=== PATIENT | male | born 1945 | race Caucasian/White ===

== ENCOUNTER → 2017-09-27 08:00 | Outpatient (CLI) | payer MEDICARE, SELFPAY ==
--- NOTE | 2017-09-27 14:46 | PFT ---
INTRODUCTION: The patient is a 72-year-old male currently under the care of Dr. Blankenship that presents for pulmonary function studies secondary to a diagnosis of COPD. Respiratory therapy reports good patient effort reports no other concerns. Bronchodilators were used during testing. INTERPRETATION: Forced expiration spirometry demonstrates the presence of a moderate large airways obstructive ventilatory defect. There was no significant response to aerosolized bronchodilators, based upon strict ATS criteria. Spirograms of good quality and do not plateau indicating slow emptying of the lungs. The respiratory flow volume loop reveals decreased expiratory flow rates at all lung volumes consistent with airways obstruction. Body plethysmography was performed and reveals lung volumes to be within normal limits. Diffusing capacity by single breath CO is within normal limits at 74% of predicted. When compared to previous pulmonary function studies dated November 2015, there has been an 8% reduction in FEV1. IMPRESSION: These pulmonary function studies demonstrate the presence of an irreversible moderate large airways obstructive ventilatory defect with normal lung volumes and preserved diffusing capacity. There has been an 8% reduction in the patient's FEV1 since PFTs were last completed in November 2015.
--- NOTE | 2017-09-27 14:50 | PFT_ITS ---
INTRODUCTION: The patient is a 72-year-old male currently under the care of Dr. Blankenship that presents for pulmonary function studies secondary to a diagnosis of COPD. Respiratory therapy reports good patient effort reports no other concerns. Bronchodilators were used during testing. INTERPRETATION: Forced expiration spirometry demonstrates the presence of a moderate large airways obstructive ventilatory defect. There was no significant response to aerosolized bronchodilators, based upon strict ATS criteria. Spirograms of good quality and do not plateau indicating slow emptying of the lungs. The respiratory flow volume loop reveals decreased expiratory flow rates at all lung volumes consistent with airways obstruction. Body plethysmography was performed and reveals lung volumes to be within normal limits. Diffusing capacity by single breath CO is within normal limits at 74% of predicted. When compared to previous pulmonary function studies dated November 2015, there has been an 8% reduction in FEV1. IMPRESSION: These pulmonary function studies demonstrate the presence of an irreversible moderate large airways obstructive ventilatory defect with normal lung volumes and preserved diffusing capacity. There has been an 8% reduction in the patient 's FEV1 since PFTs were last completed in November 2015.
== END ==
PROVIDERS: Family Provider Internal Medicine; PCP Internal Medicine; Visit Provider Internal Medicine Critical Care Medicine
DX: J44.9 Chronic obstructive pulmonary disease, unspecified (principal)
CPT/HCPCS: 94060; 94726; 94729

== ENCOUNTER 2017-10-11 11:29 | Emergency (ER) | payer MEDICARE, SELFPAY ==
[2017-10-11 11:30] VITALS: BP 147/95; PULSE 68; RESP 18; TEMP 36.6; O2SAT 96; BMI 25.1
--- NOTE | 2017-10-11 11:51 | EKG12_ITS ---
Test Reason : Blood Pressure : / mmHG Vent. Rate : 063 BPM Atrial Rate : 063 BPM P-R Int : 142 ms QRS Dur : 096 ms QT Int : 402 ms P-R-T Axes : 081 024 071 degrees QTc Int : 411 ms Normal sinus rhythm Normal ECG Confirmed by JAXSON MELTON, ELVIN ([id number]), art editor NAMAN MONDRAGON ([id number]) on 10/13/2017 3:19:40 PM Referred By: SALBADOR Confirmed By:ELVIN PURI MD
--- NOTE | 2017-10-11 11:51 | CT_ITS ---
STUDY: CT BRAIN WITHOUT CONTRAST REASON FOR EXAM: Male, 72 years old. History of fall. Prostate cancer. Dizziness. RADIATION DOSAGE (If Supplied By Facility): CTDIvol = ( 44.99 ) mGy, DLP = ( 779.24 ) mGycm TECHNIQUE: Transaxial CT imaging of the brain was performed without administration of intravenous contrast material. Individualized dose optimization techniques were used for this CT. COMPARISON: Comparison is made with prior examination dated July 04, 2012. FINDINGS: Normal soft tissue structures. Normal calvarium. Normal size ventricles and extra-axial spaces for the patient's age. Normal white matter tracts of the cerebral hemispheres. Normal basal ganglia and thalami. Normal brainstem. Normal cerebellum. There is no intracranial hemorrhage. There are no findings of an acute ischemic infarction. Normal visualized paranasal sinuses. CT/Brain/Head without Contrast IMPRESSION: Normal unenhanced CT scan of the brain. Electronically Signed: Pop Tinajero MD at 12:54 EDT Tel [phone], Service support ,
[2017-10-11 12:25] LABS: Absolute Lymphocyte Count 0.64 X10^3/ul (0.83-4.51); Absolute Neutrophil Count 4.2 X10^3/uL (2.0-7.7); Basophil# 0.01 X10^3/uL; Basophil% 0.2 % (0-1); Eosinophil# 0.03 X10^3/uL; Eosinophils% 0.6 % (0-5); Hematocrit 43.3 % (40-54); Hemoglobin 14.6 g/dl (13.0-16.5); Lymphocyte # 0.64 X10^3/ul (4.0); Lymphocyte % 12.2 % (19-41); Mean Corp Hgb Conc 33.7 g/gl (32-36); Mean Corpuscular Hgb 30.8 pg (27.0-32.0); Mean Corpuscular Volume 91.4 fL (80-94); Monocyte# 0.36 X10^3/uL; Monocyte% 6.8 % (0-10); Neutrophil # 4.21 X10^3/uL (2.7-7.7); Platelet Count 211 K/mm3 (150-450); RBC Distribution Width CV 13.7 % (11.6-14.6); RBC Distribution Width SD 44.9 fl (35.1-43.9); Red Blood Count 4.74 M/mm3 (4.6-6.2); White Blood Count 5.3 K/mm3 (4.4-11.0)
[2017-10-11 12:28] LABS: POSITIVE COUNT NO; POSITIVE DIFFERENTIAL NO; POSITIVE MORPHOLOGY NO
[2017-10-11 12:34] LABS: Anion Gap 8 (5-15); BUN 11 mg/dL (7-18); BUN/Creat Ratio 13.3 RATIO (10-20); Chloride 103 mmol/L (98-107); Creatinine, Serum 0.83 mg/dL (0.70-1.30); EST Glomerular Filtration Rate 97 mL/min (>60); Est Glom Filt Rate - Afr Amer 118 mL/min (>60); Estimated Creatinine Clearance 83.07 ml/min; Glucose 92 mg/dL (74-106); Potassium 4.2 mmol/L (3.5-5.1); Sodium Level 138 mmol/L (136-145)
[2017-10-11 13:10] VITALS: BP 146/87; PULSE 65; RESP 14; O2SAT 98
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
[2017-10-11 13:15] VITALS: BP 149/83; PULSE 66; RESP 15; O2SAT 98
[2017-10-11] MEDS: Diphth,Pertuss(Acell),Tet Vac 0.5 ML Vial IM (13:33)
== END 2017-10-11 13:55 | disposition home or self-care (01) ==
PROVIDERS: Emergency Provider Emergency Medicine; Family Provider Internal Medicine; PCP Internal Medicine
DX: R55 Syncope and collapse (principal); S01.81XA Laceration without foreign body of other part of head, initial encounter; W18.30XA Fall on same level, unspecified, initial encounter; Y93.89 Activity, other specified; Y92.9 Unspecified place or not applicable; Y99.9 Unspecified external cause status; Z23 Encounter for immunization; J44.9 Chronic obstructive pulmonary disease, unspecified; I10 Essential (primary) hypertension; M19.90 Unspecified osteoarthritis, unspecified site; F32.9 Major depressive disorder, single episode, unspecified; F17.220 Nicotine dependence, chewing tobacco, uncomplicated; Z79.82 Long term (current) use of aspirin; Z79.899 Other long term (current) drug therapy; Z85.46 Personal history of malignant neoplasm of prostate
CPT/HCPCS: 70450; 80048; 85025; 90471; 90715; 93005; 99285; J7040; A4216

== ENCOUNTER → 2017-10-18 11:31 | Outpatient (CLI) | payer MEDICARE, SELFPAY | PROVIDERS: Family Provider Internal Medicine; PCP Internal Medicine | DX: R55 Syncope and collapse (principal) | CPT/HCPCS: 93225; 93226 ==

== ENCOUNTER 2021-11-09 09:56 | Emergency (ER) | payer MEDICARE, SELFPAY ==
[2021-11-09 09:59] VITALS: BP 113/58; PULSE 76; RESP 17; TEMP 37; O2SAT 98; BMI 22.4
--- NOTE | 2021-11-09 10:12 | EX.ED.DYSGE1 ---
HPI History of Present Illness Chief Complaint: Fever Detail of Chief Complaint: Fever x4 days Informant: patient Narrative Narrative: Patient presents to the emergency department complaint of a fever that started 4 days ago. Patient's had temperatures up to 101. Patient describes fatigue and some decreased appetite as well as decreased taste and smell. Patient has had the COVID vaccine and booster. He denies sick contacts. He also complains of some loose stools and body aches. Patient was seen at urgent care 2 days ago and had negative Covid test as well as negative flu. Patient had a negative urine as well as a negative chest x-ray at that time. Patient does have history of prostate cancer and receives daily oral chemotherapy. Patient referred to the ER by his oncologist. Prior similar symptoms: No PFSH PFSH Medical History (Updated 11/09/21 @ 11:[address] Elaine Barkley, DO) Anxiety and depression Arthritis Dyspnea Emphysema lung Hilar adenopathy History of prostate cancer Insomnia Pneumonia, bacterial Rosacea Stage 2 moderate COPD by GOLD classification Home Medications aspirin 325 mg PO DAILY@0800 10/06/15 [History Last Taken Unknown] multivitamin with folic acid 1 tab PO DAILY 10/06/15 [History Last Taken Unknown] bisacodyl 5 mg tablet 5 mg PO ONCE 01/14/18 [History Last Taken Unknown] cholecalciferol (vitamin D3) 125 mcg (5,000 unit) capsule 5,000 unit PO QDAY 01/14/18 [History Last Taken Unknown] clonazepam 1 mg tablet 0.5 mg PO QHS tab 01/14/18 [History Last Taken Unknown] leuprolide (3 month) [Lupron Depot (3 month)] IM [id number] 01/14/18 [History Last Taken Unknown] omega-3 fatty acids 500 mg capsule 500 mg PO QDAY 01/14/18 [History Last Taken Unknown] albuterol sulfate 90 mcg/actuation aerosol inhaler 2 puff INHALATION TID #1 inhaler 02/11/18 [Rx Last Taken Unknown] levofloxacin 750 mg PO DAILY 5 Days #5 tab 11/09/21 [Rx Last Taken Unknown] Allergy/AdvReac Type Severity Reaction Status Date / Time [id number] Reductase AdvReac Other Verified 11/09/21 09:58 Inhibitor [Irjesbl-Pag-Xhh Reductase Inhibitor] Family History Mother Heart disease Diabetes Father Heart disease Surgical History History of prostate surgery Social History (Updated 08/14/20 @ 13:[address] Rodolfo Blankenship MD) Smoking Status: Former smoker Tobacco: How many years used: 20 second hand exposure: No alcohol intake: never substance use type: does not use caffeine: Yes what type of physical activity do you participate in: walking frequency: daily ROS ROS ED Constitutional Constitutional ED: Reports systems reviewed and no addt'l complaints, except as documented, chills and fever(s); Denies body ache(s) or change in weight Eyes Eyes: Denies acute decrease in peripheral vision, change in vision, double vision or loss of vision ENT ENT ED: Reports none; Denies ear pain, lip swelling, loss taste/smell, neck pain, otalgia or sore throat Cardiovascular Cardiovascular: Reports none; Denies abdominal pain, chest pain with activity, leg edema, lightheadedness, palpitations, rapid heart rate or syncope Respiratory/Chest Respiratory/Chest: Reports none; Denies change in mental status, dry cough, dyspnea, hemoptysis, shortness of breath at rest or shortness of breath with exertion Gastrointestinal Gastrointestinal: Reports none, diarrhea and nausea; Denies abdominal pain, change in stool character, hematemesis, hematochezia, melena, rectal bleeding or vomiting Genitourinary Genitourinary ED: Reports none; Denies abdominal discomfort, anuria, dysuria, genital pain or polyuria Musculoskeletal Musculoskeletal: Reports none and myalgias; Denies arthralgias, back pain, difficulty walking, extremity pain or muscle weakness Integumentary Reports none; Denies abscess or rash Neurologic Neurologic: Reports none and weakness; Denies abnormal gait, confusion, focal weakness, frequent falls, headache(s), loss of vision, numbness, paresthesias, radicular pain or vertigo Psychiatric Psychiatric: Reports systems reviewed and no addt'l complaints, except as documented and none; Denies behavioral changes, confusion, difficulty concentrating, hallucinations, suicidal ideation, tactile hallucinations or visual hallucinations Endocrine Endocrinology: Denies none, cold intolerance, excessive sweating, fatigue or heat intolerance Hematologic/Lymphatic Hematologic/Lymphatic: Reports none; Denies anemia, easy bleeding or easy bruising Allergic/Immunologic Allergic/Immunologic ED: Denies as per HPI, none, lip swelling, mouth swelling, throat swelling, tongue swelling or hives EXAM Physical Exam Const Vital Signs: 11/09/21 09:59 11/09/21 10:21 Temperature 98.6 F 98.6 F Temperature Source Temporal Temporal Pulse Rate 76 76 Respiratory Rate 17 17 Respiratory Effort Normal Non-Labored Respiratory Pattern Normal Blood Pressure 113/58 L 113/58 L Blood Pressure Mean 76 76 Pulse Ox 98 98 Oxygen Delivery Method Room Air Room Air Positive well nourished and well developed General Appearance ED: well developed and NAD HEENT Reports TM's clear and moist mucous membranes normocephalic and atraumatic; Negative for trauma or tenderness Tympanic Membrane ED: Yes TM's clear Eyes PERRL and EOMs intact bilaterally General Eye ED: Negative for pale conjunctiva or scleral icterus Neck no lymphadenopathy, supple and no JVD General: Negative for tenderness Chest Wall inspection of chest normal and palpation of chest normal Chest: Negative for tenderness Resp normal respiratory effort and clear to auscultation bilaterally Effort and Inspection: Negative for respiratory distress or pain with movement Auscultation: Negative for rhonchi, wheezes or diminished lung sounds Cardio regular rate, regular rhythm, S1 normal heart sound, S2 normal heart sound and no murmurs Peripheral Pulses: pulses 2+ throughout GI normal to inspection, nondistended, normoactive bowel sounds, soft to palpation, non-tender, non-distended and no masses Back/Spine no CVA tenderness and no thoracic nor lumbar tenderness Extremity normal to inspection General Extremety ED: Negative for edema General Extremity: Negative for edema Neuro oriented x3, CN's II-XII intact bilaterally, no sensory deficits noted and gait normal Sensorium / Orientation: awake, alert, oriented to person, oriented to place and oriented to time Motor Exam: strength 5/5 throughout and strength abnormal Psych mental status grossly normal Skin no rashes or lesions noted and no wounds MDM MDM MDM Narrative Medical decision making narrative: IV line established on arrival. Patient had blood cultures ordered. Lab work showed a low white blood cell count with bandemia. COVID-19 testing was negative. Lactate was normal. Urinalysis was unremarkable. Chest x-ray showed nothing acute. I did discuss case with patient's oncologist Dr. Ross who asked that I start patient on Levaquin and given that he is vital signs are stable and he looks well and there is no source of infection felt that it was reasonable that he could go home with instructions to return if symptoms should worsen. Patient has had his oral chemotherapy discontinued recently. He is on prednisone. Patient in agreement with plan moving forward as we will await his blood culture results. I suspect he may have a viral infection. Lab Data Attestation: I reviewed the patient's lab results. Labs: Laboratory Results - last 24 hr 11/09/21 11/09/21 11/09/21 10:16 10:16 10:16 WBC 2.7 L RBC 3.44 L Hgb 10.4 L Hct 30.6 L MCV 89.0 MCH 30.2 MCHC 34.0 RDW Std Deviation 50.0 H RDW Coeff of Raul 15.4 H Plt Count 183 MPV 9.0 Neut % (Auto) Not Reportable Absolute Neuts (auto) 2.2 Absolute Lymphs (auto) 0.22 L Total Counted 100 Neutrophils % (Manual) 63 Band Neutrophils % 17 H Lymphocytes % (Manual) 8 L Monocytes % (Manual) 4 Eosinophils % (Manual) 4 Metamyelocytes % 1 Myelocytes % 3 H Diff Path Review May foll Platelet Estimate ADEQUATE RBC Morphology NORM C+C Sodium 132 L Potassium 3.4 L Chloride 99 Carbon Dioxide 26.0 Anion Gap 7 BUN 12 Creatinine 0.68 L Estim Creat Clear Calc 63.02 Est GFR (MDRD) Af Amer 146 Est GFR (MDRD) Non-Af 120 BUN/Creatinine Ratio 17.6 Glucose 143 H Lactic Acid 1.4 Calcium 8.3 L Total Bilirubin 0.40 AST 34 ALT 41 Alkaline Phosphatase 125 H Total Protein 6.1 L Albumin 2.7 L Globulin 3.4 Albumin/Globulin Ratio 0.8 L Urine Color Urine Clarity Urine pH Ur Specific [place] Urine Protein Urine Glucose (UA) Urine Ketones Urine Occult Blood Urine Nitrite Urine Bilirubin Urine Urobilinogen Ur Leukocyte Esterase Urine RBC Urine WBC Ur Squamous Epith Cells Amorphous Sediment Urine Bacteria Urine Mucus 11/09/21 10:32 WBC RBC Hgb Hct MCV MCH MCHC RDW Std Deviation RDW Coeff of Raul Plt Count MPV Neut % (Auto) Absolute Neuts (auto) Absolute Lymphs (auto) Total Counted Neutrophils % (Manual) Band Neutrophils % Lymphocytes % (Manual) Monocytes % (Manual) Eosinophils % (Manual) Metamyelocytes % Myelocytes % Diff Path Review Platelet Estimate RBC Morphology Sodium Potassium Chloride Carbon Dioxide Anion Gap BUN Creatinine Estim Creat Clear Calc Est GFR (MDRD) Af Amer Est GFR (MDRD) Non-Af BUN/Creatinine Ratio Glucose Lactic Acid Calcium Total Bilirubin AST ALT Alkaline Phosphatase Total Protein Albumin Globulin Albumin/Globulin Ratio Urine Color Yellow Urine Clarity Clear Urine pH 6.0 Ur Specific [place] 1.010 Urine Protein Negative Urine Glucose (UA) Normal Urine Ketones Negative Urine Occult Blood Negative Urine Nitrite Negative Urine Bilirubin Negative Urine Urobilinogen Normal Ur Leukocyte Esterase Negative Urine RBC 0 SEEN Urine WBC 0 SEEN Ur Squamous Epith Cells 0 SEEN Amorphous Sediment 1+ Urine Bacteria 0 SEEN Urine Mucus 0 SEEN Radiography Chest X-Ray - ED: 1 View Diagnostic Testing: Clinical Impression(s) from Imaging Studies Chest X-Ray 11/09/21 10:20 IMPRESSION: Hyperinflated lungs. Electronically Signed: Celena Jacobo MD at 11:00 EDT , 1 view chest strip interpreted by myself no acute disease process. Radiology in agreement. Discharge Plan Triage Chief Complaint: Fever ED Provider: Elaine Barkley Dx/Rx/DC Orders Clinical Impression: Recurrent fever, cause unknown Instructions: ED FUO Adult Prescriptions: New levofloxacin 750 mg tablet 750 mg PO DAILY 5 Days Qty: 5 RF: 0 No Action cholecalciferol (vitamin D3) 5,000 unit capsule 5,000 unit PO QDAY RF: 0 bisacodyl 5 mg tablet 5 mg PO ONCE RF: 0 leuprolide (3 month) IM [id number] RF: 0 omega-3 fatty acids 500 mg capsule 500 mg PO QDAY RF: 0 albuterol sulfate 90 mcg/actuation HFA aerosol inhaler 2 puff INHALATION TID Qty: 1 RF: 0 aspirin 325 MG tablet 325 mg PO DAILY@0800 RF: 0 multivitamin with folic acid 1 TABLET tablet 1 tab PO DAILY RF: 0 clonazepam 1 mg tablet 0.5 mg PO QHS RF: 0 Primary Care Provider: Pedro Luis Murrell Referrals: Barbara Xavier MD [STAFF PHYSICIAN] - 3-5 Days Pedro Luis Murrell MD [Primary Care Provider] - Disposition Disposition: Home, Self Care
--- NOTE | 2021-11-09 10:20 | RAD_ITS ---
STUDY: X-RAY CHEST REASON FOR EXAM: Male, 76 years old. Fever TECHNIQUE: 2 frontal images of the chest were obtained COMPARISON: 12/10/2015 FINDINGS: The lungs are hyperinflated. There is no new focal consolidation. Normal size heart. Normal mediastinum and lelo. Normal visualized pulmonary arteries. Normal visualized aortic arch and descending thoracic aorta. Normal visualized thoracic spine. Normal visualized ribs, clavicles, and shoulders. There is no demonstrated abnormality of the visualized soft tissue structures of the upper abdomen. RAD/Chest 1 View (Portable) IMPRESSION: Hyperinflated lungs. Electronically Signed: Celena Jacobo MD at 11:00 EDT ,
[2021-11-09 10:21] VITALS: BP 113/58; PULSE 76; RESP 17; TEMP 37; O2SAT 98
[2021-11-09 10:34] LABS: Hematocrit 30.6 % (40-54); Hemoglobin 10.4 g/dL (13.0-16.5); Mean Corpuscular Hgb 30.2 pg (27.0-32.0); POSITIVE COUNT YES; POSITIVE DIFFERENTIAL YES; POSITIVE MORPHOLOGY YES; Platelet Count 183 K/mm3 (150-450); RBC Distribution Width CV 15.4 % (11.6-14.6); Red Blood Count 3.44 M/mm3 (4.6-6.2); White Blood Count 2.7 K/mm3 (4.4-11.0)
[2021-11-09 10:35] LABS: Differential Indicated MANUAL DIFF
[2021-11-09 10:38] LABS: Bacteria 0 SEEN /hpf (None Seen); Mucous, Urine 0 SEEN /hpf (<or=2+); Red Blood Cells-Urine 0 SEEN /hpf (0-5); Squamous Epithelial Cells - UA 0 SEEN /hpf (0-5); White Blood Cells 0 SEEN /hpf (0-5)
[2021-11-09 10:39] LABS: Color, Urine Yellow (Yellow); Glucose, Dipstick Normal (Normal); Ketone-Dipstick Negative (Negative); Leukocyte Esterase-Dipstick Negative /ul (Negative); Nitrite-Dipstick Negative (Negative); Occult Blood-Urine Negative /ul (Negative); Protein-Dipstick Negative (Negative); Urine Bilirubin Dipstick Negative (Negative); Urine Clarity Clear (Clear); Urine Urobilinogen Normal (Normal)
[2021-11-09 10:42] LABS: ALB/GLOB Ratio 0.8 RATIO (0.9-2.4); AST(SGOT) 34 U/L (15-37); Alanine Aminotransfer ALT/SGPT 41 U/L (16-61); Albumin, Serum 2.7 g/dL (3.2-5.0); Alkaline Phosphatase 125 U/L (45-117); Anion Gap 7 (5-15); BUN 12 mg/dL (7-18); BUN/Creat Ratio 17.6 RATIO (10-20); Calcium,Total 8.3 mg/dL (8.5-10.1); Chloride 99 mmol/L (98-107); Creatinine, Serum 0.68 mg/dL (0.70-1.30); EST Glomerular Filtration Rate 120 mL/min (>60); Est Glom Filt Rate - Afr Amer 146 mL/min (>60); Estimated Creatinine Clearance 63.02 ml/min; Globulin 3.4 g/dL (2.2-4.2); Glucose 143 mg/dL (74-106); Potassium 3.4 mmol/L (3.5-5.1); Protein, Total 6.1 g/dL (6.4-8.2); Sodium Level 132 mmol/L (136-145)
[2021-11-09 10:46] LABS: Amorphous Sediment 1+
[2021-11-09 10:53] LABS: Eosinophil 4 % (0-5); Lymphocyte 8 % (19-41); Metamyelocyte 1 % (0-1); Monocyte 4 % (0-10); Myelocyte 3 % (0-0); Neutrophil-Band 17 % (0-5); Neutrophil-Segmented 63 % (47-70); Platelet Estimate ADEQUATE (ADEQ); Red Cell Morphology NORM C+C NORMAL (NORM C&C); Total Cells Counted 100 (MANUAL DIFF)
[2021-11-09 10:54] LABS: Absolute Lymphocyte Count 0.22 X10^3/uL (0.83-4.51); Absolute Neutrophil Count 2.2 X10^3/uL (2.0-7.7)
[2021-11-09 10:56] LABS: Lactic Acid 1.4 mmol/L (0.4-1.9)
[2021-11-09] MEDS: levoFLOXacin 750 MG Tablet PO (11:20)
[2021-11-09 11:22] VITALS: BP 129/77; PULSE 62; RESP 15; O2SAT 98
[2021-11-10 13:03] LABS: Pathologist Review Reviewed
== END 2021-11-09 11:22 | disposition home or self-care (01) ==
PROVIDERS: Emergency Provider Emergency Medicine; PCP Internal Medicine; Visit Provider Emergency Medicine
DX: R50.9 Fever, unspecified (principal); J43.9 Emphysema, unspecified; C61 Malignant neoplasm of prostate; D72.825 Bandemia; Z20.822 Contact with and (suspected) exposure to COVID-19; Z79.82 Long term (current) use of aspirin; Z79.899 Other long term (current) drug therapy; Z87.891 Personal history of nicotine dependence
CPT/HCPCS: 71045; 80053; 81001; 83605; 85025; 87040; 87086; 87811; 99284; A4216

== ENCOUNTER 2022-06-01 09:21 | Outpatient (CLI) | payer MEDICARE, SELFPAY ==
[2022-06-01] MEDS: 0.9% NaCl Peripheral Flush Adult/Peds IV (09:36)
[2022-06-01 09:45] VITALS: BP 118/67; PULSE 76; RESP 16; TEMP 36.1; O2SAT 99; BMI 19.8
[2022-06-01 10:21] VITALS: BP 86/53; PULSE 72; RESP 16; TEMP 36.4; O2SAT 99
[2022-06-01 11:29] VITALS: BP 109/58; PULSE 69; RESP 16; TEMP 35.9; O2SAT 100
[2022-06-01 12:01] VITALS: BP 109/61; PULSE 65; RESP 16; TEMP 36.3; O2SAT 100
== END 2022-06-01 23:59 | disposition home or self-care (01) ==
LOC: MEDOUTP 09:22
PROVIDERS: PCP Internal Medicine; Referring Provider Internal Medicine Hematology & Oncology; Visit Provider Internal Medicine Hematology & Oncology
DX: C61 Malignant neoplasm of prostate (principal); D64.81 Anemia due to antineoplastic chemotherapy
CPT/HCPCS: 36430; 86850; 86900; 86901; 86920; 86922; J7040; P9016; A4216